=== PATIENT | male | born 1990 | race Caucasian/White ===

== ENCOUNTER 2018-06-14 14:34 | Emergency (ER) | payer SELFPAY ==
[2018-06-14 15:17] VITALS: BP 125/68
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
[2018-06-14] MEDS ORDERED: Lidocaine 2% W/EPI 1:100,000* 20 ML MDV INJ ONE (15:43)
== END 2018-06-14 16:28 | disposition home or self-care (01) ==
LOC: UCCORT 14:34
DX: S51.812A Laceration without foreign body of left forearm, initial encounter (principal); W25.XXXA Contact with sharp glass, initial encounter; Y93.89 Activity, other specified; Y92.9 Unspecified place or not applicable; Z88.7 Allergy status to serum and vaccine
CPT/HCPCS: 12002; 99201; G0463